=== PATIENT | female | born 1950 | race Caucasian/White ===

== ENCOUNTER 2016-08-21 12:40 | Emergency (ER) | payer MEDICARE ==
[~2016-08-21] VITALS: Ht 165.1 cm; Wt 91.4 kg
[~2016-08-21 12:40] MED LIST: ALPR0.5T PO; AMLO10TA3 PO; ASPI-973 PO; CHOL200025 PO; DICY10CA56 PO; FERR-83 PO; FLUO20TA28 PO; HYDR25TA4 PO; OMEG300C3 PO; OXYC5TAB72 PO; SOMA350 PO; [UNRECOGNIZED DRUG - OTHER] ORAL
[2016-08-21 12:46] VITALS: BP 154/84; PULSE 57; RESP 13; O2SAT 94
[2016-08-21 13:46] LABS: Mean Corpuscular Hemoglobin 30.3 pg (27.0-35.0); Mean Corpuscular Volume 89 fL (81-100); Platelet Count 224 bil/L (150-400)
[2016-08-21 13:47] LABS: BASOPHILS % (AUTO) 0 % (0-3); EOSINOPHILS % (AUTO) 3 % (0-5); MONOCYTES % (AUTO) 7 % (4-12); NEUTROPHILS % (AUTO) 79 % (40-74)
[2016-08-21 14:12] LABS: TROPONIN T < 0.010 ug/L (0.0-0.011)
[2016-08-21 14:20] LABS: Magnesium 1.9 mg/dL (1.6-2.6)
[2016-08-21 14:46] VITALS: BP 148/83; PULSE 63; RESP 14; O2SAT 93
[2016-08-21] MEDS ORDERED: Amoxicillin-Clav 875-125 mg Tablet PO ONE (15:30)
[2016-08-21] MEDS ORDERED: Albuterol-Ipratropium 3 mL Inhalation Solution NEB ONE (15:30)
--- NOTE | 2016-08-21 15:45 | ED.REPORT ---
HPI-Dyspnea / Wheezing Date of Service Aug 21, 2016 ED Provider: Bertha Choudhary MD 66yoF with history of refractory GERD presents with several days of productive cough and perceived shortness of breath. The patient reports chronic history of aspiration which typically resolves without medication. The patient states that her sputum is white yellow and streaked with blood. She denies chest pain or palpitations but states that she feels more short of breath and feels better since being placed on oxygen in the ED. The patient denies fever, but does have chills worsening over the last several days. The patient has a history of chronic abdominal pain after a complicated abdominal surgery which required a prolonged hospitalization and intubation several years prior. Nursing Notes Stated Complaint: SHORTNESS OF BREATH Chief Complaint: Respiratory Distress Nursing Notes Reviewed: Yes Allergies: Coded Allergies: TAPE (Verified Allergy, Severe, Blisters, 12/05/09) ciprofloxacin (Verified Allergy, Severe, unknown, 08/21/16) metoclopramide (Verified Allergy, Severe, DYSTONIA,AKESTHESIA,anxiety, 16/03) propofol (Verified Allergy, Severe, Hallucinations, 12/05/09) lisinopril (Verified Allergy, Intermediate, 02/06/15) Scheduled ([omeprezone]) 20 MG ORAL BID Amlodipine (Amlodipine) 10 Mg Tablet 10 MG PO DAILY Amoxicillin/Clav K 875-125 mg (Augmentin 875-125 mg) 1 Each Tablet 1 TABLET PO BID Aspirin (Aspirin) 81 Mg Tablet 81 MG PO DAILY Cholecalciferol (Vitamin D3) (Vitamin D3) 2,000 Unit Tablet 2,000 UNIT PO DAILY Ferrous Sulfate (Ferrous Sulfate) 325 Mg Tablet 325 MG PO DAILY Fluoxetine (Fluoxetine) 20 Mg Tablet 20 MG PO DAILY Hydrochlorothiazide (Hydrochlorothiazide) 25 Mg Tablet 25 MG PO DAILY Scheduled PRN Alprazolam (Xanax) 0.5 Mg Tablet 1 MG PO TID PRN PRN For Anxiety Carisoprodol (Carisoprodol) 350 Mg Tablet 2 TAB PO TID PRN PRN For Spasm Dicyclomine (Bentyl) 10 Mg Capsule 10 MG PO QID PRN PRN For Pain oxyCODONE (oxyCODONE) 5 Mg Tablet 5 MG PO QID PRN PRN For Pain Miscellaneous Medications [place]-3 Fatty Acids (Fish Oil) 300 Mg Capsule Unknown Dose PO General Time Seen by MD: 13:40 Chief Complaint Cough, Shortness of breath Hx Obtained From: Patient, Spouse Caused by: Spontaneous (possible aspiration) Sudden in Onset?: No Onset Occurred: Onset unknown (2 or 3 days ago) Recent Healthcare: Recent doctor visit, Recent testing, Previous diagnosis, Previous surgery, Prior workup Similar Sx Previous: Yes Past Medical History Past Medical History Notes: PCP: Yue Francois [facility] Past Medical History ho septic shock in past per patient (bowel injury from surgery 2009) frequent SBOs (multiple admissions) Chronic back pain ho interstitial cystitis ho lichen schlerosis Severe Gastric Reflux Reports: Diabetes mellitus, GERD, Hypertension Reports: Depression Past Surgical History Bowel obstruction January 2015. Surgery for Gastric Reflux, details unclear Endometrial tumor 1993, removed Cholecystectomy 2003 Vaginal hysterectomy Right elbow surgery Left thumb surgery Several foot surgeries Reports: Back/neck surgery Smoking History Former Smoker Social History No tobacco use Alcohol Use: Denies alcohol use Other Social History: Good social support, , Local resident Ambulatory Status Independent Review of Systems Basic Review of Systems Eyes: Vision NL, No discharge : No dysuria, No frequency Hematologic: No bleeding, No bruising Endocrine: No heat intolerance, No weight gain, No weight loss Neurologic: No weakness, No numbness Psychiatric: Normal thought content Constitutional: Reports: Chills, Fatigue, Lethargy, Denies: Fever Ears / Nose / Throat: Denies: Earache bilateral, Hearing loss bilateral, Nasal congestion, Sore throat, Throat pain Respiratory: Reports: Hemoptysis, Prod cough, white, Prod cough, yellow, Shortness of breath, Denies: Pleuritic pain Cardiovascular: Denies: Chest pain, Palpitations Musculoskeletal: Reports: Back pain, Denies: Extremity pain, Extremity swelling Skin: Denies Rash, Denies Swelling, Denies Unexplained bruises Allergy / Immune: Denies: Itching, Rhinorrhea Complete sys rev & neg: except as marked. Physical Exam Initial Vital Signs Vital Signs (First) Date Time Temp Pulse Resp B/P Pulse Ox O2 Delivery O2 Flow Rate FiO2 08/21/16 12:46 36.7 57 13 154/84 94 Room Air 08/21/16 14:46 2 Initial VS: Reviewed Head / Eyes: Atraumatic, Normocephalic, PERRL ENT: Mucous membranes moist, Conjunctiva normal, No scleral icterus Abdomen / GI: Soft, No rebound, No distention Back: No CVA tenderness Lymphatic: No lymphadenopathy Extremities: Vascular intact, Neuro intact, No swelling, No tenderness Skin: Warm, Dry, No cyanosis Neurologic: Alert, Oriented, Nonfocal Psychiatric: Mood/affect normal, Behavior normal, Normal thought content General/Constitutional: Awake, Alert, No acute distress, Well developed, Cooperative, Not toxic appearing Appearance / Presentation: Positive: Obese Neck: Atraumatic, Supple, No meningismus, Full range of motion, No swelling, Non-tender, No masses well healed trachiostomy scar Respiratory / Chest: No respiratory distress, No rhonchi, No chest tenderness Diminished Breath Sounds: Positive: Decreased bilateral Wheezing / Retractions: Positive: Wheezing mild Rales / Rhonchi: Positive: Rales R up to 1/3 Cardiovascular: Heart rate NL, No gallop, No murmurs, No rubs, Cap refill not delayed, Peripheral circulation NL, Pulses = bilaterally Heart Rate / Rhythm: Positive: Irreg irregular rhythm Heart Sounds / Murmur: Positive: Heart sounds diminished ENT: Airway patent, Mucous membranes moist, Pharynx NL Abdomen: Atraumatic, BS normoactive, No distention Tenderness/Guarding/Rebound: Positive: Tender diffuse vertical and horizontal well healed ventral incisions Lower Extremity / Pelvis / MS: Inspection NL, No swelling, Non-tender, No erythema, No deformity, Neurologic intact, No edema Skin: Color NL, No rash, Warm, Dry, Turgor NL Neurologic: Oriented X3, Speech NL, No motor deficits, No sensory deficits, CN II - XII intact, Cerebellar NL, Memory NL Interpretation & Diagnostics Lab Results Interpretation Result Diagram: 08/21/16 1336 08/21/16 1336 Test 08/21/16 13:36 White Blood Count 9.8th/mm3 (3.8-10.1) Red Blood Count 4.56mil/mm3 (3.90-5.20) Hemoglobin 13.8g/dL (12.0-15.6) Hematocrit 40.6% (35.0-46.0) Mean Corpuscular Volume 89fL (81-100) Mean Corpuscular Hemoglobin 30.3pg (27.0-35.0) Mean Corpuscular Hemoglobin Concent 34.0% (32.0-37.0) Red Cell Distribution Width 13.3% (12.3-15.4) Platelet Count 224bil/L (150-400) Neutrophils (%) (Auto) 79% (40-74) Lymphocytes (%) (Auto) 11% (14-46) Monocytes (%) (Auto) 7% (4-12) Eosinophils (%) (Auto) 3% (0-5) Basophils (%) (Auto) 0% (0-3) Sodium Level 136mEq/L (134-144) Potassium Level 4.5mEq/L (3.5-5.2) Chloride Level 98mEq/L (97-108) Carbon Dioxide Level 26mmol/L (18-29) Blood Urea Nitrogen 16mg/dL (8-27) Creatinine 0.77mg/dL (0.57-1.00) Estimat Glomerular Filtration Rate 107mL/min (>59) Glucose Level 124mg/dL (60-99) Calcium Level 8.8mg/dL (8.5-10.1) Magnesium Level 1.9mg/dL (1.6-2.6) Total Bilirubin 0.7mg/dL (0.0-1.2) Aspartate Amino Transf (AST/SGOT) 100U/L (0-50) Alanine Aminotransferase (ALT/SGPT) 53U/L (0-32) Alkaline Phosphatase 142U/L (25-165) Troponin T < 0.010ug/L (0.0-0.011) Total Protein 6.5g/dL (6.4-8.4) Albumin 3.8g/dL (3.4-5.0) Procalcitonin 0.07ng/mL (0.00-0.08) Hold Nielsen Top Tube Received (Received) Re-Eval/Medical Decision Med Decision/Clinical Course 66yoF with known refractory GERD and a history of aspiration presents with likely aspiration pneumonia. No signs of sepsis at this time with WBC normal no tachycardia or tachypnea and afebrile. Mildly elevated procalcitonin and CXR shows likely right lower lobar pneumonia currently awaiting read from radiology. Will begin therapy with antibiotics Augmentin and DC. Dr. Choudhary open examined the patient and discussed the patient with the resident. I agree with his disposition. I am concerned that the patient is overmedicating herself which is causing her somnolence. I discussed this with her as well told her she needs to decrease her medications. Discharge & Departure Impression: Primary Impression: Aspiration pneumonia Aspiration pneumonia type: due to gastric secretions Laterality: right Lung location: middle lobe of lung Qualified Code: J69.0 - Pneumonitis due to inhalation of food and vomit Additional Impressions: GERD (gastroesophageal reflux disease) Esophagitis presence: without esophagitis Qualified Code: K21.9 - Gastro- esophageal reflux disease without esophagitis Transaminitis Ruled Out: Myocardial infarct Disposition: Home Discharge Condition All VS Reviewed: Yes Condition: Stable Patient Instructions: Aspiration Pneumonia (ED) Additional Instructions: You were sent from the urgent care due to increased somnolence, the doctors were worried about your mentation. During your visit to [facility] Emergency Department we obtained blood work for infectious markers, hemoglobin levels, and electrolytes. We obtained chest which showed a likely aspiration pneumonia, as well as some labs which were consistent with a possible bacterial pneumonia. We will send you home with - 7 day course of Augmentin Antibiotics Do not hesitate to call emergency services or your primary care physician if you experience any of the following. -High unrelenting fevers. -Uncontrolled vomiting. -Severe low blood pressure -dizziness or loss of consciousness. -Chest pain or severe shortness of breath. Please contact your primary care physician today and schedule a follow up ED appointment in 1-2 weeks time following your emergency department visit for medication checks and general well-being. Given the change seen in your ability to interact with staff and answer questions during your course in emergency department we recommend that you decrease your dosage of either Oxycodone or Alprazolam or both. These medications are highly sedating and dangerous together and predispose you to aspiration while sleeping or worse complete cessation of breathing. Please do not drive while taking either Oxycodone or Alprazolam. It may be difficult to stop these medications as they can both be addicting. Recommendations include decreasing your Oxycodone dosing first. Do not stop taking Alprazolam cold turkey as this can predispose you to severe reactions like seizure. Decreasing your dosage slowly over time is recommended and your PCP may be able to help. Referrals: Joycelyn Francois (PCP) Attending Statement I spent [id number] time with this patient and agree with the resident's plan and disposition. copies to: Joycelyn Francois Nicholas K DO Aug 21, 2016 15:14 Bertha Choudhary MD Aug 21, 2016 17:42
[2016-08-21] MEDS ORDERED: AMOX-366 PO (15:46)
[2016-08-21 15:48] VITALS: PULSE 74; RESP 18; O2SAT 97
[2016-08-21 16:09] VITALS: BP 116/82; PULSE 75; RESP 19; O2SAT 95
--- NOTE | 2016-08-21 16:16 | DRSVH ---
PROCEDURE: X-RAY CHEST ONE VIEW, PORTABLE ([id number]) INDICATIONS: possible pna TECHNIQUE: One view of the chest was acquired. COMPARISON: [facility], CR, XR ABD ACUTE SERIES 3VW, 05/29/2015, 14:03. [facility], CR, CHEST 1VW (PORTABLE), 08/11/2012, 15:27. FINDINGS: Surgical changes and devices: Right upper quadrant clips are present. Lungs and pleura: No pleural effusions or pneumothorax. Mild appearance of increased pulmonary vascu larity. There is mild distortion of the right heart shadow. Mediastinum: Mediastinal contours appear normal. Heart size is normal. Bones and chest wall: No suspicious bony lesions. Overlying soft tissues appear unremarkable. IMPRESSION: Mild increased pulmonary vascularity. Mild distortion of the right heart shadow, possibl y related to developing infiltrate. Dictated by: Beronica Patel M.D. on 08/21/2016 at 16:13 Approved by: Beronica Patel M.D. on 08/21/2016 at 16:14
[2016-08-21 16:19] VITALS: BP 116/82; PULSE 75; RESP 19; O2SAT 95
== END 2016-08-21 15:52 | disposition home or self-care (01) ==
LOC: SED 12:40
DX: J69.0 Pneumonitis due to inhalation of food and vomit (principal); K21.9 Gastro-esophageal reflux disease without esophagitis; R74.0 Nonspecific elevation of levels of transaminase and lactic acid dehydrogenase [LDH]; I10 Essential (primary) hypertension; E11.9 Type 2 diabetes mellitus without complications; Z87.891 Personal history of nicotine dependence; Z79.82 Long term (current) use of aspirin; Z88.1 Allergy status to other antibiotic agents; Z88.8 Allergy status to other drugs, medicaments and biological substances
CPT/HCPCS: 36415; 71010; 80053; 82308; 83735; 84484; 85025; 93005; 99285; G0463; J7620